=== PATIENT | female | born 1965 | race Caucasian/White ===

== ENCOUNTER → 2016-12-27 15:17 | Outpatient (CLI) | payer SELFPAY | END | disposition home or self-care (01) | LOC: D.LAB 15:17 | DX: Z00.00 Encounter for general adult medical examination without abnormal findings (principal) ==

== ENCOUNTER → 2017-03-25 11:33 | Outpatient (CLI) | payer SELFPAY | END | disposition home or self-care (01) | LOC: D.LAB 11:33 | DX: R89.1 Abnormal level of hormones in specimens from other organs, systems and tissues (principal) ==